=== PATIENT | female | born 1970 | race Caucasian/White ===

== ENCOUNTER 2024-07-16 17:50 | Emergency (ER) | payer OTHER ==
[~2024-07-16] VITALS: Ht 170.2 cm; Wt 70.8 kg
[2024-07-16 18:08] VITALS: TEMP 98.4
[2024-07-16] MEDS ORDERED: IOPAMIDOL 370 MG/ML 100 ML INFUS..BTL INJ ONE (18:37)
[2024-07-16] MEDS: METHYLPREDNISOLONE SOD SUCC 125 MG/2ML VIAL IV ONE (20:50)
[2024-07-16] MEDS: KETOROLAC TROMETHAMINE 30 MG/ML VIAL IV STA (20:50)
[2024-07-16] MEDS: SODIUM CHLORIDE 0.9% 1000ML 1,000 ML IV SCH (20:51)
[2024-07-16 23:00] VITALS: PULSE 82; RESP 18
[2024-07-16 23:01] VITALS: BP 133/81; PULSE 82; RESP 18; O2SAT 98
[2024-07-16] MEDS ORDERED: PREDNISONE20 MG PO (23:09)
[2024-07-16] MEDS ORDERED: ONDANSETRON ODT4 MG PO (23:10)
[2024-07-16] MEDS ORDERED: MESALAMINE800 MG PO (23:12)
== END 2024-07-16 23:26 | disposition home or self-care (01) ==
LOC: FSED 17:55
DX: R11.2 Nausea with vomiting, unspecified (principal); K51.00 Ulcerative (chronic) pancolitis without complications; K92.1 Melena; R10.30 Lower abdominal pain, unspecified; D64.9 Anemia, unspecified; I10 Essential (primary) hypertension
CPT/HCPCS: 74177; 80048; 80076; 81003; 85025; 99283; J1885; J2470; J2919; J7030; Q9967